=== PATIENT | female | born 1985 | race Caucasian/White ===

== ENCOUNTER 2020-08-21 08:27 | Outpatient (REF) | payer OTHER, SELFPAY ==
[2020-08-22 10:16] LABS: BV Int Neg Control Negative (Negative); BV Int Pos Control Positive (Positive)
[2020-08-22 20:51] LABS: C. trachomatis RNA TMA NOT DETECTED (NOT DETECTED); N. gonorrhoeae RNA TMA NOT DETECTED (NOT DETECTED)
== END 2020-08-21 08:28 | disposition home or self-care (01) ==
LOC: HO.LAB 08:27
PROVIDERS: Visit Provider Advanced Practice Midwife
DX: Z01.419 Encounter for gynecological examination (general) (routine) without abnormal findings (principal); Z12.4 Encounter for screening for malignant neoplasm of cervix; Z20.2 Contact with and (suspected) exposure to infections with a predominantly sexual mode of transmission
CPT/HCPCS: 36415; 87480; 87491; 87510; 87591; 87660

== ENCOUNTER 2021-08-27 08:14 | Outpatient (REF) | payer OTHER, SELFPAY ==
[2021-08-27 16:09] LABS: CT PCR NOT DETECTED (Not Detect.); NG PCR NOT DETECTED (Not Detect.)
[2021-08-28 11:03] LABS: BV Int Neg Control Negative (Negative); BV Int Pos Control Positive (Positive)
[2021-08-29 16:41] LABS: HPV mRNA E6/E7 rflx Not Detected (Not Detected)
== END 2021-08-27 08:15 | disposition home or self-care (01) ==
LOC: HO.LAB 08:14
PROVIDERS: Visit Provider Advanced Practice Midwife
DX: Z01.419 Encounter for gynecological examination (general) (routine) without abnormal findings (principal); Z11.51 Encounter for screening for human papillomavirus (HPV); Z20.2 Contact with and (suspected) exposure to infections with a predominantly sexual mode of transmission
CPT/HCPCS: 87480; 87491; 87510; 87591; 87624; 87660; 88142

== ENCOUNTER 2025-04-16 14:59 | Outpatient (AMB) | payer OTHER, SELFPAY ==
--- NOTE | 2025-04-16 15:08 | MHC.OFFVIS ---
Vital Signs 04/16/25 15:23 Height 5 ft 8 in Weight 315 lb BMI 47.9 BP 120/78 Intake Visit Reasons: INFORMATION ARCHITECT annual exam Staffing Operations Manager: Staffing Operations Manager Present (Denise) Accompanied by: Self / Same As Patient Allergies bee pollen (BEE STINGS) Allergy (Unknown, Verified 04/16/25 15:22) RASH codeine (CODEINE) Allergy (Unknown, Verified 04/16/25 15:22) HIVES latex (LATEX) Allergy (Unknown, Verified 04/16/25 15:22) RASH bee stings Allergy (Unknown, Uncoded 08/21/20 08:35) unknown latex Allergy (Unknown, Uncoded 08/21/20 08:35) hives, asthma SEASONAL ALLERGIES Allergy (Unknown, Uncoded 08/21/20 08:35) ITCHY EYES Medication List - Last Reconciled 04/16/25 by Ana Johnson CNM albuterol sulfate 90 mcg/actuation 2 puffs inhalation Q6H PRN budesonide-formoterol 160-4.5 mcg/actuation (Symbicort) 2 puffs inhalation BID montelukast (Singulair) 10 mg PO DAILY Is last menstrual period known: Yes Last menstrual period: 04/09/25 Post menopausal: No Patient : No HPI HPI INFORMATION ARCHITECT annual exam: Details: 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 Though this summer she had 2 months in the summer November and January where she had 2 periods in the month. Her periods when she gets them, are not long and very heavy. She had her tubes tied for control. 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 She struggles with her weight and it goes up and down she recently tried phentermine and used it for 4 months but did not do well with a because of anxiety side effects. She is waiting for GLP ones to be approved for her her primary care provider in [facility] is ordering it for her they are hoping for Zepbound. She recently had a whole lot of blood work done 2 months ago and says that all of her screens were negative for diabetes and liver issues and thyroid. She eats well and healthy and makes healthy choices and any time she loses weight it comes right back again. [facility] Medical History (Updated 04/16/25 @ 16:15 by Ana Johnson CNM) delivery delivered Asthma Surgical History (Updated 04/16/25 @ 15:21 by Denise Palencia MA) History of cholecystectomy History of tubal ligation Social History Alcohol intake: current Alcohol intake frequency: holidays/special occasions only Cigarettes Per Day: 3 Patient : No Gender identity: Female Female Reproductive History Menstrual Age of Menarche: 18 Duration of menses: 6-7 days Date of last menstrual period: 04/09/25 control method: permanent sterilization Total pregnancies: 4 Full term: 2 Date of last pap smear: 08/27/21 (negative pap smear, negative hpv ) Physical Exam Vital Signs: Last Vital Signs BP 120/78 04/16/25 15:23 BMI result Body Mass Index 47.9 Const General: healthy appearing, comfortable, no acute distress, well developed and alert Nutritional Appearance: average body habitus Orientation/consciousness: patient oriented x3 Limitations: no limitations HEENT Head: Yes normocephalic Neck Neck: Yes normal visual inspection Chest Chest palpation & inspection: normal inspection of the chest Breast/axilla inspection: normal inspection of the breasts and normal inspection of the axillae Breast/axilla palpation: normal palpation of the breasts and normal palpation of the axillae Resp Effort & Inspection: normal respiratory effort GI Inspection: Yes normal to inspection, No Abdominal wall edema and No distended Palpation (GI): Soft to palpation and nontender Other: Normal external exam vagina is pink and moist and clear with healthy scant mucus with tiny debris of previous menses which finished recently it started 7 days ago. Cervix difficult to visualize completely but pink and smooth on surface difficult to palpate uterus but nothing tender and she had good tone with Kegel no adnexal tenderness either. General: Yes bladder normal to palpation External Female Exam: normal external appearance and normal appearance of the urethra Speculum Exam - Vagina: normal appearance of the vagina, normal palpation and normal vaginal discharge Speculum Exam - Cervix: normal appearance of the cervix, normal palpation and nontender Bimanual exam- vagina & uterus: normal bimanual exam, normal palpation, uterine size normal, bladder normal to palpation, consistency normal, normal palpation, uterine mobility normal, uterine shape normal, No Cervical tenderness present, non-tender and no cervical motion tenderness Bimanual Exam- Adnexa, other: normal adnexae, no masses, normal and No adnexal tenderness Neuro General: patient oriented x3 Results Reviewed Results Reviewed: Name: Maryam Wheeler Age/Sex: 36/F Attending: Ana Johnson CNM : 1985 Submitted by: Ana Johnson CNM Copies to: MR #: [id number] Status: DEP REF Collected: 08/27/21 Location: .LAB Received: 08/28/21 Interpretation Satisfactory for evaluation. Negative for intraepithelial lesion or malignancy. HPV mRNA E6/E7: NOT DETECTED This assay detects E6/E7 viral messenger RNA (mRNA) from 14 high-risk HPV types (16, 18, 31, 33, 35, 39, 45, 51, 52, 56, 58, 59, 66, 68) HPV testing performed by [facility], [place], [place]. See reference laboratory pion of the EMR for entire report. Clinical Information LMP: 08/07/21 Previous PAP test: 2017, WNL Material Received ThinPrep Cervical Electronically Signed By: ALYSON Pruitt (ASCP) 09/18/21 8144 The Pap Test is a screening procedure with the inherent possibility of both false negative and false positive results. Results should be interpreted in the context of historic and current clinical findings. Reliability of the Pap Test is enhanced by performing the test on a regular repetitive basis. Patient: Maryam Wheeler Age/Sex: 36/F MR#: [id number] Page 1 of 1 Assessment & Plan Assessment & Plan (1) Well woman exam with routine gynecological exam: Code(s): Z01.419 - Encounter for gynecological examination (general) (routine) without abnormal findings Category: Medical (2) Cervical cancer screening: Comment: no abnormals, last pap 03/14/19= neg , neg HPV.,;plan was to do pap 2023, but pap was done 08/27/21= negative with negative HPV Code(s): Z12.4 - Encounter for screening for malignant neoplasm of cervix Category: Medical (3) Potential exposure to STD: Comment: Testing done with pelvic exam but she declines blood work today Code(s): Z20.2 - Contact with and (suspected) exposure to infections with a predominantly sexual mode of transmission Category: Medical (4) Obesity, morbid, BMI 40.0-49.9: Comment: Doing her best to try and eat healthy and make good choices and walks a lot in her job. Is awaiting insurance approval for GLP ones. Code(s): E66.01 - Morbid (severe) obesity due to excess calories Category: Medical Plan -----Discussed in this visit the following: healthy balanced diet, regular and consistent exercise, getting recommended health screens, doing the best she can for her particular health concerns, kegel exercises, pap smear screening and followup recommendations, mammography screening and SBE, normal changes in cycles in her life stage--- . I wished her luck with her efforts at weight loss and hope that she gets the GLP ones approved as she would definitely benefit from assistance as she is already trying to do all the right stuff and pay attention to it. Acknowledged that ones we are significantly overweight it is just much more difficult and are body has a different set point and there learning more and more about this. Discussed potential side effects and continue her excellent efforts. Discussed start of mammograms at age 42. About her periods I recommend continuing to keep track if she ever did start skipping menses especially up to 3 months discussed that we would want to work her up and make sure that there was no endometrial cancer by doing an endometrial biopsy but the solution for regulating menses might be a Mirena IU S which is frequently used in this particular age group to regulate / decrease menses. Is no indication of for this now but I just wanted to let her know for future reference. She declined blood work for STIs. .Her next Pap would be 2026 RTC 1 year. Coding Level of Care Code Est Pt Prev Care 18-39y(35069) Diagnoses Well woman exam with routine gynecological exam Z01.419 Cervical cancer screening Z12.4 Potential exposure to STD Z20.2 Obesity, morbid, BMI 40.0-49.9 E66.01
[2025-04-16 15:23] VITALS: BP 120/78; BMI 47.9
--- OUTSIDE RECORDS SUMMARY | 2025-04-16 18:24 | XMS_ITS | Clinical Summary ---
Author Organization [address] [facility] Address [address] [place] [address] Phone Care Team Providers Care Cigarette Tester Name Role Phone Josselin Aguilar MD Primary Care Prov ider Allergies Active Allergy Reactions Criticality Noted Date Comments Acetaminophen 11/27/2022 Codeine Hives 04/23/2017 Latex Rash 05/12/2017 Medications albuterol 2.5 mg /3 mL (0.083 %) nebulizer solution Inhale 3 mL (2.5 mg total) by mouth. 03/13/2024 Active montelukast (SINGULAIR) 10 mg tablet Take 1 tablet (10 mg total) by mouth at bedtime. 08/02/2023 Active naproxen (NAPROSYN) 500 mg tablet Take 1 tablet (500 mg total) by mouth. 01/14/2023 Active fluoride, sodium, (DentaGeL) 1.1 % gel USE DIRECTED BEFORE BEDTIME 10/25/2022 Active Ventolin HFA 90 mcg/actuation inhaler INHALE 2 PUFFS INTO THE LUNGS EVERY 4 HOURS NEEDED FOR COUGH OR WHEEZING FOR UP TO 30 DAYS. 18 each 2 06/06/2024 Active umeclidinium (Incruse Ellipta) 62.5 mcg/actuation inhalation Inhale 1 puff by mouth. Active Advair Diskus 500-50 mcg/dose diskus inhaler INHALE 1 PUFF INTO THE LUNGS EVERY 12 HOURS FOR 30 DAYS. 60 each 11 07/24/2024 Active tirzepatide, weight loss, (Zepbound) 2.5 mg/0.5 mL injectionIndica tions:Morbid obesity (CMS/HCC V24, CMS/HCC V28) Inject 0.5 mL (2.5 mg total) under the skin every 7 (seven) days. 2 mL 03/13/2025 Active tirzepatide, weight loss, (Zepbound) 5 mg/0.5 mL injectionIndica tions:Morbid obesity ([facility] V24, [facility] V28) Inject 0.5 mL (5 mg total) under the skin every 7 (seven) days. 2 mL 03/29/2025 Active Active Problems Problem Noted Date Diagnosed Date Moderate mixed hyperlipidemia not requiring stat in therapy 12/15/2024 Plantar fasciitis, bilateral 12/14/2024 Bilateral edema of lower extremity 11/18/2022 Snoring 05/23/2021 Overview (04/14/2024): 04/2021 Home Sleep Study did not reveal sleep apnea or nocturnal hypoxia. COVID-19 virus infection 09/14/2020 Moderate persistent asthma 03/21/2019 Depression 04/23/2017 Allergic rhinitis 03/25/2017 Asthma 03/25/2017 Migraine headache 09/09/2013 Encounters Date Type Department Care Team Description 03/13/2025 9:30 AM EDT Office Visit Adult Medicine - [address] [phone] Sylvain Kaba PA Class 3 severe obesity due to excess calories with body mass index (BMI) of 50.0 to 59.9 in adult, unspecified whether serious comorbidity present ([facility] V24, [facility] V28) (Primary Dx); Elevated BP without diagnosis of hypertension; Anxiety; History of tachycardia; Morbid obesity ([facility] V24, [facility] V28) 03/06/2025 8:15 AM EDT Office Visit Orthopedic Surgery - [place] [address] [place] [phone] Yogi Badillo, DPM Plantar fascial fibromatosis (Primary Dx); Tendinitis of right ankle; Arthritis of right ankle; Tendonitis, Achilles, right; Equinus contracture of ankle; Hallux rigidus of left foot; Hallux rigidus of right foot 03/04/2025 10:15 AM EDT Office Visit Walk-In Clinic - [address] [place] [address] Osmin Flores PA Congestion of nasal sinus (Primary Dx); Acute non-recurrent maxillary sinusitis from Last 3 Months Immunizations Immunization Administration Dates Next Due Influenza Quadravalent, MDCK , 0.5ml, preservative free (Flucelvax) 6mo and older 03/12/2023 Influenza Quadravalent, MDCK , 0.5ml, with preservative (Flucelvax) 6mo and older 04/03/2020,03/29/2019 Influenza Quadrivalent, 0.5m l, preservative free (Fluarix; FluLaval; Fluzone) ages 6mo and older (Afluria) 3yo and older 06/03/2017 Influenza trivalent, 0.5mL, preservative free (Fluarix; FluLaval; Fluzone) ages 6mo and older (Afluria) 3 years and older 04/26/2024 Influenza trivalent, MDCK, 0 .5mL, preservative free (Flucelvax) 6mo and older 03/14/2025 Influenza, live, intranasal, trivalent (FluMist) 2yo to less than 50yo 04/26/2024 Pneumococcal polysaccharide 23 valent (Pneumovax 23) 2yo and older 12/09/2017 Tdap Tetanus diptheria acell ular pertussis (Boostrix; Adacel) 7yo and older 09/30/2017 Surgical History Surgery Date Site/Laterality Comments CHOLECYSTECTOMY 2003 PROCEDURE: HISTORICAL CHOLECYSTECTOMY SECTION PROCEDURE: HISTORICAL ; COMMENT: 12/2012, 11/2017 TUBAL LIGATION 11/2017 PROCEDURE: HISTORICAL TUBAL LIGATION Medical History Medical History Date Comments Depression 04/23/2017 DX:Depression Morbid obesity with BMI of 4 0.0-44.9, adult ([facility] V24, CMS/HCC V28) 03/25/2017 DX:Morbid obesity wit h BMI of 40.0-44.9, adult ([facility]) Allergic rhinitis 03/25/2017 DX:Allergic rh initis Moderate persistent asthma 03/21/2019 DX:Mo derate persistent asthma Family History Medical History Relation Name Comments Diabetes Father Merrill aranda Hyperlipidemia Father Merrill aranda No Known Problems Maternal Grandfather Glaucoma Maternal Grandmother No Known Problems Mother Breast cancer Mother's side 1 Breast cancer Mother's side 2 No Known Problems Paternal Grandfather No Known Problems Paternal Grandmother Relation Name Status Comments Father Merrill aranda Alive Maternal Grandfather Alive Maternal Grandmother Alive Mother Alive Mother's side 1 Mother's side 2 Paternal Grandfather Alive Paternal Grandmother Social History Tobacco Use Types Packs/Day Years Used Date Smoking Tobacco: Former Cigarettes 1 7.8 S tarted: 2018 Smokeless Tobacco: Never Tobacco Cessation:Counseling Given: Not Answered Alcohol Use Standard Drinks/Week Comments Yes 1 (1 standard drink = 0.6 oz pur e alcohol) Housing Instability Answer Date Recorde d Are you worried that in the next 2 months you may not have stable housing? No 12/14/2024 Food Access & Nutrition Answer Date Rec orded Do you have access to a vari ety of food including fruits and vegetables? Yes 12/14/2024 Access to Healthcare Answer Date Record ed Within the last 3 months, ho w many times did you visit the emergency department for your medical care? 0 12/14/2024 Health Literacy Answer Date Recorded How often do you need to hav e someone help you when you read instructions, pamphlets, or other written material from your doctor or pharmacy? Never 12/14/2024 Caregiver: How often do you need to have someone help you when you read instructions, pamphlets, or other written material from your doctor or pharmacy? Not on file 12/14/2024 Financial Risk Answer Date Recorded How hard is it for you to pa y for the very basics like food, housing, medical care, and air conditioning / heating? Not very hard 12/14/2024 Transportation Answer Date Recorded Has the lack of transportati on kept you from meetings, work, or from getting things needed for daily living? No Has the lack of transportati on kept you from medical appointments or from getting medications? No 12/14/2024 Social Isolation Answer Date Recorded How often do you feel lonely or isolated from th ose around you? Never 12/14/2024 Food Risk Answer Date Recorded Within the past 12 months we worried whether our food would run out before we got money to buy more. Never true 12/14/2024 Within the past 12 months th e food we bought just didn't last and we didn't have money to get more. Never true 12/14/2024 Dependent Care Answer Date Recorded Do you need help finding or paying for care for your loved ones. For example, exceptional children teacher assistant or elderly care for an older adult? No 12/14/2024 Education Answer Date Recorded Do you think completing more education or training, like finishing a GED, going to college, or learning a trade, would be helpful for you? No 12/14/2024 Employment and Income Answer Date Recor ded During the last four weeks, have you been actively looking for work? No 12/14/2024 Living Situation Answer Date Recorded What is your living situation? Unrecognized valu e 12/14/2024 Comments No Sex and Gender Information Value Date Recorded Sex Assigned at Not on file Legal Sex Female 3:39 AM EST Gender Identity Not on file Sexual Orientation Not on file Occupation Industry Job Start Date Job End Date [employer] Not on file Not on file Not on santo e Obstetrics History Last Filed Vital Signs Vital Sign Reading Time Taken Comments Blood Pressure 154/86 03/13/2025 9:56 AM EDT Pulse 70 03/13/2025 9:27 AM EDT Temperature 36.3 C (97.3 F) 03/13/2025 9:27 AM EDT Respiratory Rate 16 01/03/2025 3:40 PM EDT Oxygen Saturation 98% 03/04/2025 10:16 AM EDT Inhaled Oxygen Concentration - - Weight 152 kg (335 lb) 03/13/2025 9:27 AM EDT Height 172.7 cm (5' 8 ) 03/13/2025 9:27 AM EDT Body Mass Index 50.94 03/13/2025 9:27 AM EDT Plan of Treatment Upcoming Encounters Date Type Department Care Team (Late st Contact Info) Description 04/19/2025 3:15 PM EDT Office Visit Orthopedic Surgery - [address] [place] [phone] Yogi Badillo DPM [address] [place] [phone] 06/12/2025 4:30 PM EST Office Visit Adult Medicine - [address] [phone] Sylvain Kaba PA [address] [place] [address] 07/06/2025 2:15 PM EST Office Visit Pulmonology - [place] [address] [facility] [address] [place] [phone] Huang Sebastian MD [address] [place] [phone] Health Maintenance Due Date Last Done Comments HPV Vaccines (1 - 3-dose SCDM series) 2014 Cervical Cancer Screening: Pap Smear 03/21/2022 03/21/2019, 03/21/2019 Social Influencers of Health Screening 12/14/2025 12/14/2024, 07/28/2023 DTaP,Tdap,and Td Vaccines (2 - Td or Tdap) 10/01/2027 09/30/2017 Cholesterol Screening (Lipid Panel) 12/15/2029 12/15/2024, 07/28/2023, 03/21/2019 RSV Immunization Adult Patients (1 - 1-dose 75+ series) 2062 Pneumococcal Vaccine: Pediatrics (0 to 5 Years) and At-Risk Patients (6 to 49 Years) Discontinued 12/09/2017 COVID-19 Vaccine Discontinued 12/20/2020, 11/29/2020 Depression Screening Completed 12/14/2024, 07/28/19 Hepatitis C Screening Completed 12/15/2024 Influenza Vaccine Completed 03/14/2025, , 04/26/2024, Additional history exists HIB Vaccines Aged Out No longer eligi ble based on patient's age to complete this topic HIV Screening Discontinued Hepatitis A Vaccines Aged Out No long er eligible based on patient's age to complete this topic Hepatitis B Vaccines Discontinued IPV Vaccines Aged Out No longer eligi ble based on patient's age to complete this topic MMR Vaccines Aged Out No longer eligi ble based on patient's age to complete this topic Meningococcal ACWY Vaccine Aged Out N o longer eligible based on patient's age to complete this topic Meningococcal B Vaccine Aged Out No l onger eligible based on patient's age to complete this topic RSV Immunization Patients Under 20 months Aged Out No longer eligible based on patient's age to complete this topic Varicella Vaccines Aged Out No longer eligible based on patient's age to complete this topic Procedures Procedure Name Priority Date/Time Associated Diagnosis Comments POC RAPID [id number], MOLECULAR Routine 03/04/2025 10:28 AM EDT Congestion of nasal sinus HEPATITIS C ANTIBODY Routine 12/15/2024 1:23 PM EDT Need for hepatitis C screening test LIPID PANEL WITH REFLEX TO DIRECT LDL Routine 12/15/2024 1:23 PM EDT Screening, lipid HM DEPRESSION SCREENING Routine 07/28/2023 HM PAP SMEAR Routine 03/21/2019 from Last 3 Months or Most Recently Relevant to Health Maintenance Results * Poc Rapid [id number], MOLECULAR (03/04/2025 10:28 AM EDT) Pathologist [facility] [place] COVID-19/SARS- COV-2 Rapid POC Negative Negative Swab Nasopharyngeal structure / Unknown 03/04/2025 10:28 AM EDT Osmin HANNAH POINT OF CARE TEST ENTER/EDIT OR DERABLES Final Result * Hepatitis C antibody (12/15/2024 1:23 PM EDT) Pathologist [facility] Hepatitis C Antibody Negative Negative LAB CHEMISTRY METHOD 12/15/2024 5:28 PM EDT [facility] Blood Venous blood specimen / Unknown Venipuncture / Unknown 12/15/2024 1:23 PM EDT 12/15/2024 1:23 PM EDT Sylvain HANNAH LAB BLOOD ORDERABLES Final Res ult [facility] [address] [place] [address], [place] [phone] * (ABNORMAL) Lipid panel with reflex to direct LDL (12/15/2024 1:23 PM EDT) Cholesterol 204(H) 0 - 200 mg/dL LAB CHEMISTRY METHOD 12/15/2024 4:05 PM EDT [facility] Triglycerides 197(H) 0 - 150 mg/dL LAB CHEMISTRY METHOD 12/15/2024 4:05 PM EDT [facility] HDL 65 >=40 mg/dL LAB CHEMISTRY METHOD 12/15/2024 4:05 PM EDT [facility] LDL Calculated 100 0 - 100 mg/dL LAB CHEMISTRY METHOD 12/15/2024 4:05 PM EDT [facility] VLDL Cholesterol Wander 39.4 mg/dL LAB CHEMISTRY METHOD 12/15/2024 4:05 PM EDT [facility] Non HDL Chol. (LDL+VLDL) 139 <145 mg/dL LAB CHEMISTRY METHOD 12/15/2024 4:05 PM EDT [facility] Chol/HDL Ratio 3.1 0.0 - 4.4 LAB CHEMISTRY METHOD 12/15/2024 4:05 PM EDT [facility] Blood Venous blood specimen / Unknown Venipuncture / Unknown 12/15/2024 1:23 PM EDT 12/15/2024 1:23 PM EDT Sylvain HANNAH LAB BLOOD ORDERABLES Final Res ult [facility] [address] [place] [address], * Depression Screening (07/28/2023) Depression Screening abstracted Historical Provider HEALTH MAINTENANCE Final Result * Pap Smear (03/21/2019) Pap smear no interpretation , abstracted Historical Provider HEALTH MAINTENANCE Final Result from Last 3 Months or Most Recently Relevant to Health Maintenance Additional Health Concerns Infection Onset Date Last Indicated Coronavirus 07/21/2024 07/21/2024 Insurance [facility] [employer] Care Teams Cigarette Tester Relationship Specialty Start Date End Date Josselin Aguilar MD [address] [place] [phone] PCP - General Internal Medicine 01/29/21
--- OUTSIDE RECORDS SUMMARY | 2025-04-16 18:24 | XMS_ITS ---
Author Name [facility] Organization Unknown Care Team Organization Name Specialty Phone Email Start Date End Da te [facility] MARLEN RAMSEY Primary Care 12/24/2022 02/07/2024 [facility] DORA VELÁZQUEZ Primary Care 09/22/2022 02/07/20 [facility] Miya Sanders Primary Care 04/28/2022 02/07/20 24
== END 2025-04-18 14:51 | disposition home or self-care (01) ==
LOC: HO.HWS 15:00
PROVIDERS: Visit Provider Advanced Practice Midwife
DX: Z01.419 Encounter for gynecological examination (general) (routine) without abnormal findings (principal); Z20.2 Contact with and (suspected) exposure to infections with a predominantly sexual mode of transmission; E66.01 Morbid (severe) obesity due to excess calories; Z68.42 Body mass index [BMI] 45.0-49.9, adult
CPT/HCPCS: 99395; 99459

== ENCOUNTER 2025-04-16 14:59 | Outpatient (REF) | payer OTHER, SELFPAY ==
--- OUTSIDE RECORDS SUMMARY | 2025-04-16 19:08 | XMS_ITS | Encounter Summary ---
Author Organization [facility] Address [address] [place] [address] Care Team Providers Care Purchaser Automotive Parts Name Role Phone Ileana Barraza MD Unavailable Unava ilable Edison Aguilar MD Primary Care Provider +1 [phone] Encounter Details Date Type Department Care Team Description 01/15/2022 Telephone Pulmonology - [place] 175 [facility] [address] [place] [address] Huang Sebastian MD [address] [place] [phone] Social History Tobacco Use Types Packs/Day Years Used Date Smoking Tobacco: Former Cigarettes 1 11 Smokeless Tobacco: Never Alcohol Use Standard Drinks/Week Comments Yes 0 (1 standard drink = 0.6 oz pur e alcohol) social, once monthly Sex Assigned at Date Recorded Female 11/30/2022 9:26 PM E DT COVID-19 Exposure Response Date Recorded In the last 10 days, have yo u been in contact with someone who was confirmed or suspected to have Coronavirus/COVID-19? No / Unsure 01/06/2022 3:33 PM EDT documented as of this encounter Plan of Treatment Not on file documented as of this encounter Visit Diagnoses Not on filedocumented in this encounter Care Teams Purchaser Automotive Parts Relationship Specialty Start Date End Date Edison Aguilar MD [address] [place] [address] PCP - General Internal Medicine 01/29/21 Ileana Barraza MD Internal Medicine 05/12/17 documented as of this encounter
--- OUTSIDE RECORDS SUMMARY | 2025-04-16 19:08 | XMS_ITS | Encounter Summary ---
Author Organization [facility] Address [address] [place] [address] Care Team Providers Care Citrus Fruit Colorer Name Role Phone Ileana Barraza MD Unavailable Unava ilable Edison Aguilar MD Primary Care Provider +1 -[phone] Encounter Details Date Type Department Care Team Description 12/04/2021 SCAN [facility] Medical [facility] [address] [phone] Yogi Badillo DPM [address] [address] Social History Tobacco Use Types Packs/Day Years [...] suspected to have Coronavirus/COVID-19? No / Unsure 12/02/2021 3:20 PM EDT documented as of this encounter Plan of Treatment Not on file documented as of this encounter Visit Diagnoses Not on filedocumented in this encounter Care Teams Citrus Fruit Colorer Relationship Specialty Start Date End Date Edison Aguilar MD [address] [place] [address] PCP - General Internal Medicine 01/29/21 Ileana Barraza MD Internal Medicine 05/12/17 documented as of this encounter
--- OUTSIDE RECORDS SUMMARY | 2025-04-16 19:08 | XMS_ITS | Encounter Summary ---
Author Organization [facility] Address [address] [place] [address] Care Team Providers Care Obedience Trainer Name Role Phone Ileana Barraza MD Unavailable Unava ilable Edison Aguilar MD Primary Care Provider [phone] [phone] Encounter Details Date Type Department Care Team Description 01/28/2022 SCAN [facility] Medical [facility] [address] [phone] Yogi Badillo DPM [address] [address] Social History Tobacco Use Types Packs/Day Years Used Date Smoking Tobacco: Former Cigarettes 1 11 Smokeless Tobacco: Never Alcohol Use Standard Drinks/Week Comments Yes 4 (1 standard drink = 0.6 oz pur e alcohol) Sex Assigned at Date Recorded Female 11/30/2022 9:26 PM E DT COVID-19 Exposure Response Date Recorded In the last 10 days, have yo u been in contact with someone who was confirmed or suspected to have Coronavirus/COVID-19? No / Unsure 01/26/2022 3:13 PM EDT documented as of this encounter Plan of Treatment Not on file documented as of this encounter Visit Diagnoses Not on filedocumented in this encounter Care Teams Obedience Trainer Relationship Specialty Start Date End Date Edison Aguilar MD [address] [place] [address] PCP - General Internal Medicine 01/29/21 Ileana Barraza MD Internal Medicine 05/12/17 documented as of this encounter
--- OUTSIDE RECORDS SUMMARY | 2025-04-16 19:08 | XMS_ITS | Encounter Summary ---
Author Organization [facility] Address [address] [place] [address] Care Team Providers Care Elevator Repair Mechanic Name Role Phone Ileana Barraza MD Unavailable Unava ilable Ileana Barraza MD Primary Care Provider Unavailable Edison Aguilar MD Primary Care Provider [phone] [phone] Encounter Details Date Type Department Care Team Description 06/18/2019 Refill Pulmonology [facility] 175 [facility] [address] [place] [address] Dafne Nation NP Social History Tobacco Use Types Packs/Day Years Used Date Smoking Tobacco: Former Cigarettes 1 11 Smokeless Tobacco: Never Alcohol Use Standard Drinks/Week Comments Yes 0 (1 standard drink = 0.6 oz pur e alcohol) social, once monthly Sex Assigned at Date Recorded Female 11/30/2022 9:26 PM E DT documented as of this encounter Plan of Treatment Not on file documented as of this encounter Visit Diagnoses Diagnosis Asthma, unspecified asthma severity, unspecified whether complicated, unspecified whether persistent documented in this encounter Care Teams Elevator Repair Mechanic Relationship Specialty Start Date End Date Ileana Barraza MD PCP - General Internal Medicine 08/10/1704/10 Edison Aguilar MD [address] [place] [address] PCP - General Internal Medicine 01/29/21 Ileana Barraza MD Internal Medicine 05/12/17 documented as of this encounter
--- OUTSIDE RECORDS SUMMARY | 2025-04-16 19:08 | XMS_ITS | Encounter Summary ---
Author Organization [facility] Address [address] [place] [address] Care Team Providers Care Finishing Manager Name Role Phone Ileana Barraza MD Unavailable Unava ilable Edison Aguilar MD Primary Care Provider [phone] [phone] Encounter Details Date Type Department Care Team Description 02/10/2022 SCAN [facility] Medical [facility] [address] [phone] Yogi Badillo DPM [address] [address] Social History Tobacco Use Types Packs/Day Years [...] suspected to have Coronavirus/COVID-19? No / Unsure 02/05/2022 3:22 PM EDT documented as of this encounter Plan of Treatment Not on file documented as of this encounter Visit Diagnoses Not on filedocumented in this encounter Care Teams Finishing Manager Relationship Specialty Start Date End Date Edison Aguilar MD [address] [place] [address] PCP - General Internal Medicine 01/29/21 Ileana Barraza MD Internal Medicine 05/12/17 documented as of this encounter
--- OUTSIDE RECORDS SUMMARY | 2025-04-16 19:08 | XMS_ITS | Encounter Summary ---
Author Organization [facility] Address [address] [place] [address] Care Team Providers Care Ductfixing Plumber Name Role Phone Ileana Barraza MD Unavailable Unava ilable Ileana Barraza MD Primary Care Provider Unavailable Edison Aguilar MD Primary Care Provider [phone] [phone] Encounter Details Date Type Department Care Team Description 12/27/2020 Refill Internal Medicine - [place] [address] [facility], [address] [place] [address] Huang Sebastian MD [address] [place] [address] Social History Tobacco Use Types Packs/Day Years [...] as of this encounter Visit Diagnoses Diagnosis Moderate persistent asthma, unspecified whether complicated documented in this encounter Care Teams Ductfixing Plumber Relationship Specialty Start Date End Date Ileana Barraza MD PCP - General Internal Medicine 08/10/1704/10 Edison Aguilar MD [address] [place] [address] PCP - General Internal Medicine 01/29/21 Ileana Barraza MD Internal Medicine 05/12/17 documented as of this encounter
--- OUTSIDE RECORDS SUMMARY | 2025-04-16 19:08 | XMS_ITS | Encounter Summary ---
Author Organization [facility] Address [address] [place] [address] Care Team Providers Care Production Engineer Name Role Phone Ileaan Barraza MD Unavailable Unava ilable Edison Aguilar MD Primary Care Provider [phone] [phone] Encounter Details Date Type Department Care Team Description 12/25/2021 SCAN [facility] Medical [facility] 175 [facility] [address] [place] [phone] Nathan Wilkerson PA-C Social History Tobacco Use Types Packs/Day Years [...] on filedocumented in this encounter Care Teams Production Engineer Relationship Specialty Start Date End Date Edison Aguilar MD [address] [place] [address] PCP - General Internal Medicine 01/29/21 Ileana Barraza MD Internal Medicine 05/12/17 documented as of this encounter
--- OUTSIDE RECORDS SUMMARY | 2025-04-16 19:08 | XMS_ITS | Encounter Summary ---
Author Organization [facility] Address [address] [place] [address] Care Team Providers Care Machine Ceramic Coater Name Role Phone [place]-Ileana Durbin MD Unavailable Unava ilable Edison Aguilar MD Primary Care Provider [phone] [phone] Encounter Details Date Type Department Care Team Description 05/13/2021 Telephone Pulmonology - [place] 175 [facility] [address] [place] [address] Huang Sebastian MD [address] [place] [phone] Social History Tobacco Use Types Packs/Day Years Used Date Smoking Tobacco: Former Cigarettes 1 11 Smokeless Tobacco: Never Alcohol Use Standard Drinks/Week Comments Yes 0 (1 standard drink = 0.6 oz pur e alcohol) social, once monthly Sex Assigned at Date Recorded Female 11/30/2022 9:26 PM E DT documented as of this encounter Miscellaneous Notes * Telephone Encounter - Rush Ramirez - 05/13/2021 12:57 PM EST Geni 01/29/21 Nov 08/15/21 documented in this encounter Plan of Treatment Not on file documented as of this encounter Visit Diagnoses Diagnosis Asthma, unspecified asthma severity, unspecified whether complicated, unspecified whether persistent documented in this encounter Care Teams Machine Ceramic Coater Relationship Specialty Start Date End Date Edison Aguilar MD [address] [place] [address] PCP - General Internal Medicine 01/29/21 [place]-Ileana Durbin MD Internal Medicine 05/12/17 documented as of this encounter
--- OUTSIDE RECORDS SUMMARY | 2025-04-16 19:08 | XMS_ITS | Encounter Summary ---
Author Organization [facility] Address [address] [place] [address] Care Team Providers Care Product Manager E Commerce Name Role Phone Ileana Barraza MD Unavailable Unava ilable Edison Aguilar MD Primary Care Provider [phone] [phone] Encounter Details Date Type Department Care Team Description 01/30/2022 SCAN [facility] Medical [facility] [address] [phone] Yogi Badillo DPM [address] [address] Social History Tobacco Use Types Packs/Day Years [...] on filedocumented in this encounter Care Teams Product Manager E Commerce Relationship Specialty Start Date End Date Edison Aguilar MD [address] [place] [address] PCP - General Internal Medicine 01/29/21 Ileana Barraza MD Internal Medicine 05/12/17 documented as of this encounter
--- OUTSIDE RECORDS SUMMARY | 2025-04-16 19:08 | XMS_ITS | Encounter Summary ---
Author Organization [facility] Address [address] [place] [address] Care Team Providers Care Mechanical Systems Design Engineer Name Role Phone Canelo Durbin MD Primary Care Provider Unav ailIleana Loaiza MD Unavailable Unava ilIleana Loaiza MD Primary Care Provider Unavailable Edison Aguilar MD Primary Care Provider [phone] [phone] Encounter Details Date Type Department Care Team Description 05/19/2017 Transfer Records Medical Records [address] [place] [id number] Abstract, Provider Social History Tobacco Use Types Packs/Day Years Used Date Smoking Tobacco: Former Cigarettes 1 11 Smokeless Tobacco: Never Alcohol Use Standard Drinks/Week Comments No 0 (1 standard drink = 0.6 oz pur e alcohol) Sex Assigned at Date Recorded Female 11/30/2022 9:26 PM E DT documented as of this encounter Plan of Treatment Not on file documented as of this encounter Visit Diagnoses Not on filedocumented in this encounter Care Teams Mechanical Systems Design Engineer Relationship Specialty Start Date End Date Canelo Durbin MD PCP - General Gastroenterology 05/12/17 08/09/17 Ileana Barraza MD PCP - General Internal Medicine 08/10/1704/10 Edison Aguilar MD [address] [place] [address] PCP - General Internal Medicine 01/29/21 Ileana Barraza MD Internal Medicine 05/12/17 documented as of this encounter
--- OUTSIDE RECORDS SUMMARY | 2025-04-16 19:08 | XMS_ITS | Encounter Summary ---
Author Organization [facility] Address [address] [place] [address] Care Team Providers Care General Practice Name Role Phone Ileana Barraza MD Unavailable Unava ilable Ileana Barraza MD Primary Care Provider Unavailable Edison Aguilar MD Primary Care Provider [phone] [phone] Encounter Details Date Type Department Care Team Description 03/02/2018 Orders Only Pulmonology - [place] [address] [facility] [address] [place] [phone] Huang Sebastian MD 175 [place] [phone] Moderate persistent asthma, unspecified whether complicated (Primary Dx) Social History Tobacco Use Types Packs/Day Years [...] Diagnoses Diagnosis Moderate persistent asthma, unspecified whether complicated- Primary documented in this encounter Care Teams General Practice Relationship Specialty Start Date End Date Ileana Barraza MD PCP - General Internal Medicine 08/10/1704/10 Edison Aguilar MD [address] [place] [address] PCP - General Internal Medicine 01/29/21 Ileana Barraza MD Internal Medicine 05/12/17 documented as of this encounter
--- OUTSIDE RECORDS SUMMARY | 2025-04-16 19:08 | XMS_ITS | Encounter Summary ---
Author Organization [facility] Address [address] [place] [address] Care Team Providers Care Urban Designer Name Role Phone Ileana Barraza MD Unavailable Unava ilable Edison Aguilar MD Primary Care Provider [phone] [phone] Encounter Details Date Type Department Care Team Description 04/21/2023 Pt. Non Urgent Medical Question Pulmonology - [place] 175 [facility] [address] [place] [phone] Huang Sebastian MD 175 [place] [phone] Social History Tobacco Use Types Packs/Day Years [...] suspected to have Coronavirus/COVID-19? No / Unsure 04/22/2023 3:10 PM EDT documented as of this encounter Plan of Treatment Not on file documented as of this encounter Visit Diagnoses Not on filedocumented in this encounter Care Teams Urban Designer Relationship Specialty Start Date End Date Edison Aguilar MD [address] [place] [address] PCP - General Internal Medicine 01/29/21 Ileana Barraza MD Internal Medicine 05/12/17 documented as of this encounter
--- OUTSIDE RECORDS SUMMARY | 2025-04-16 19:08 | XMS_ITS | Encounter Summary ---
Author Organization [facility] Address [address] [place] [address] Care Team Providers Care Toll Lineman Name Role Phone Ileana Barraza MD Unavailable Unava ilable Edison Aguilar MD Primary Care Provider [phone] [phone] Encounter Details Date Type Department Care Team Description 03/12/2022 SCAN [facility] [address] [place] [address] [place] [phone] Nathan Wilkerson PA-C Social History Tobacco [...] on filedocumented in this encounter Care Teams Toll Lineman Relationship Specialty Start Date End Date Edison Aguilar MD [address] [place] [address] PCP - General Internal Medicine 01/29/21 Ileana Barraza MD Internal Medicine 05/12/17 documented as of this encounter
--- OUTSIDE RECORDS SUMMARY | 2025-04-16 19:08 | XMS_ITS | Encounter Summary ---
Author Organization [facility] Address [address] [place] [address] Care Team Providers Care Machine Operator Farmworker Name Role Phone [place]-Ileana Durbin MD Unavailable Unava ilable Edison Aguilar MD Primary Care Provider [phone] [phone] Encounter Details Date Type Department Care Team Description 05/23/2021 Orders Only Pulmonology - [place] 175 [facility] [address] [place] [address] Huang Sebastian MD [address] [place] [address] Morbid obesity (HCC); FARHANA (obstructive sleep apnea) Social History Tobacco Use Types Packs/Day Years [...] on file documented as of this encounter Procedures Procedure Name Priority Date/Time Associated Diagnosis Comments SLEEP STUDY-FULL NEURO 16 CHANNEL Routine 05/07/2021 Morbid obesity (HCC) FARHANA (obstructive sleep apnea) documented in this encounter Results * SLEEP STUDY-FULL NEURO 16 CHANNEL (05/07/2021) Huang Sebastian MD PULMONOLOGY documented in this encounter Visit Diagnoses Diagnosis Morbid obesity (HCC) Morbid obesity FARHANA (obstructive sleep apnea) Obstructive sleep apnea (adult) (pediatric) documented in this encounter Care Teams Machine Operator Farmworker Relationship Specialty Start Date End Date Edison Aguilar MD [address] [place] [address] PCP - General Internal Medicine 01/29/21 [place]-Ileana Durbin MD Internal Medicine 05/12/17 documented as of this encounter
--- OUTSIDE RECORDS SUMMARY | 2025-04-16 19:08 | XMS_ITS | Encounter Summary ---
Author Organization [facility] Address [address] [place] [address] Care Team Providers Care Wind Technician Name Role Phone Ileana Barraza MD Unavailable Unava ilable Ileana Barraza MD Primary Care Provider Unavailable Edison Aguilar MD Primary Care Provider [phone] [phone] Encounter Details Date Type Department Care Team Description 06/18/2019 Refill Pulmonology - [place] 175 [facility] [address] [place] [phone] Huang Sebastian MD 175 [place] [phone] Social History Tobacco Use Types Packs/Day Years [...] severity, unspecified whether complicated, unspecified whether persistent Moderate persistent asthma, unspecified whether complicated documented in this encounter Care Teams Wind Technician Relationship Specialty Start Date End Date Ileana Barraza MD PCP - General Internal Medicine 08/10/1704/10 Edison Aguilar MD [address] [place] [address] PCP - General Internal Medicine 01/29/21 Ileana Barraza MD Internal Medicine 05/12/17 documented as of this encounter
--- OUTSIDE RECORDS SUMMARY | 2025-04-16 19:08 | XMS_ITS | Encounter Summary ---
Author Organization [facility] Address [address] [place] [address] Care Team Providers Care Registration Representative Name Role Phone [place]-Ileana Durbin MD Unavailable Unava ilable Edison Aguilar MD Primary Care Provider [phone] [phone] Encounter Details Date Type Department Care Team Description 03/11/2024 Pt. Non Urgent Medical Question Pulmonology - [place] 175 [facility] [address] [place] [address] Huang Sebastian MD 175 [place] [phone] Moderate persistent asthma with exacerbation (Primary Dx); Asthma, unspecified asthma severity, unspecified whether complicated, unspecified whether persistent Social History Tobacco Use Types Packs/Day Years Used Date Smoking Tobacco: Former Cigarettes 1 11 Smokeless Tobacco: Never Alcohol Use Standard Drinks/Week Comments Yes 4 (1 standard drink = 0.6 oz pur e alcohol) Sex Assigned at Date Recorded Female 11/30/2022 9:26 PM E DT documented as of this encounter Miscellaneous Notes * Telephone Encounter - Aman Yuan CMA - 03/13/2024 9:34 AM EDTFrom: Maryam Wheeler To: Madhavi Sebastian Sent: 03/11/2024 7:58 AM EDT Subject: Prescriptions At my appointment I asked if I could possibly get a prescription or help getting a nebulizer as mine is a few years old and it???s starting to get loud. Also, please, I need refills for the nebulizer. Any questions or concerns I can be reached at [phone] thank you! documented in this encounter Plan of Treatment Not on file documented as of this encounter Procedures Procedure Name Priority Date/Time Associated Diagnosis Comments NEBULIZER Routine 03/13/2024 6:43 PM EDT Moderate persistent asthma with exacerbation documented in this encounter Visit Diagnoses Diagnosis Moderate persistent asthma with exacerbation- Primary Unspecified asthma, with exacerbation Asthma, unspecified asthma severity, unspecified whether complicated, unspecified whether persistent documented in this encounter Care Teams Registration Representative Relationship Specialty Start Date End Date Edison Aguilar MD [address] [place] [address] PCP - General Internal Medicine 01/29/21 [place]-Ileana Durbin MD Internal Medicine 05/12/17 documented as of this encounter
--- OUTSIDE RECORDS SUMMARY | 2025-04-16 19:08 | XMS_ITS | Encounter Summary ---
Author Organization [facility] Address [address] [place] [address] Care Team Providers Care Facilities Operator Name Role Phone Ileana Barraza MD Unavailable Unava ilable Edison Aguilra MD Primary Care Provider [phone] [phone] Encounter Details Date Type Department Care Team Description 02/13/2022 SCAN [facility] Medical [facility] [address] [phone] Yogi Badillo DPM [address] [address] Social History Tobacco Use Types Packs/Day Years [...] on filedocumented in this encounter Care Teams Facilities Operator Relationship Specialty Start Date End Date Edison Aguilar MD [address] [place] [address] PCP - General Internal Medicine 01/29/21 Ileana Barraza MD Internal Medicine 05/12/17 documented as of this encounter
--- OUTSIDE RECORDS SUMMARY | 2025-04-16 19:08 | XMS_ITS | Encounter Summary ---
Author Organization [facility] Address [address] [place] [address] Care Team Providers Care Tube Roller Name Role Phone Ileana Barraza MD Unavailable Unava ilable Ileana Barraza MD Primary Care Provider Unavailable Edison Aguilar MD Primary Care Provider [phone] [phone] Reason for Visit * Reason Onset Date Comments medication problems 01/23/2019 Encounter Details Date Type Department Care Team Description 01/23/2019 Refill Pulmonology - [place] 175 [facility] [address] [place] [address] Huang Sebastian MD [address] [place] [address] medication problems Social History Tobacco Use Types Packs/Day Years Used Date Smoking Tobacco: Former Cigarettes 1 11 Smokeless Tobacco: Never Alcohol Use Standard Drinks/Week Comments No 0 (1 standard drink = 0.6 oz pur e alcohol) Sex Assigned at Date Recorded Female 11/30/2022 9:26 PM E DT documented as of this encounter Miscellaneous Notes * Telephone Encounter - Susanne Culver - 01/23/2019 12:26 PM EDT Unavailable dosing at [facility]-only 5 mg will need verbal ok to administer to pt. [facility] pharmacy did call on Wednesday re: Prednisone issue of no 10 - 20 mg. Sorry this is a duplicate of order-please disregard . documented in this encounter Plan of Treatment Not on file documented as of this encounter Visit Diagnoses Not on filedocumented in this encounter Care Teams Tube Roller Relationship Specialty Start Date End Date Ileana Barraza MD PCP - General Internal Medicine 08/10/1704/10 Edison Aguilar MD [address] [place] [address] PCP - General Internal Medicine 01/29/21 Ileana Barraza MD Internal Medicine 05/12/17 documented as of this encounter
--- OUTSIDE RECORDS SUMMARY | 2025-04-16 19:08 | XMS_ITS | Encounter Summary ---
Author Organization [facility] Address [address] [place] [address] Care Team Providers Care Professor Of Biostatistics Name Role Phone [place]-Ileana Durbin MD Unavailable Unava ilable Edison Aguilar MD Primary Care Provider [phone] Reason for Referral * Non MAYELA (Routine) - Closed Specialty Diagnoses / Procedures Referred By Contac t Referred To Contact Podiatry / Orthopedic Diagnoses Acute bilateral ankle pain Procedures REFERRAL TO PODIATRY (IN NETWORK) Sylvain Kaba PA-C [address] [place], [place] Yogi Badillo DPM [address] [place] [id number] Referral ID Status Reason Start Date Expiration Date Visits Re quested Visits Authorized [id number] Closed 07/25/2021 07/25/2022 1 1 Reason for Visit * Reason Onset Date Comments Hvac Engineering Technician Feedback 07/24/2021 Podiatry Encounter Details Date Type Department Care Team Description 07/24/2021 Telephone Adult Medicine - [place] [address] [place], [place] [phone] Edison Aguilar MD [address] [place], [place] Hvac Engineering Technician Feedback (Podiatry) Social History Tobacco Use Types Packs/Day Years Used Date Smoking Tobacco: Former Cigarettes 1 11 Smokeless Tobacco: Never Alcohol Use Standard Drinks/Week Comments Yes 0 (1 standard drink = 0.6 oz pur e alcohol) social, once monthly Sex Assigned at Date Recorded Female 11/30/2022 9:26 PM E DT documented as of this encounter Miscellaneous Notes * Telephone Encounter - Annette Willis - 07/25/2021 10:49 AM EST Good morning, You referred patient to [facility] unfortunately,this office does not accept patient insurance. Thank You! Please review this patients new referral request. The referral has been pended. Please complete thefollowing: If approved> sign order If denied>please give instructions and route to your practice nursing pool. Practice nurse should inform referrals and the patient if denied. documented in this encounter Plan of Treatment Not on file documented as of this encounter Visit Diagnoses Diagnosis Acute bilateral ankle pain- Primary documented in this encounter Care Teams Professor Of Biostatistics Relationship Specialty Start Date End Date Edison Aguilar MD [address] [place] [id number] PCP - General Internal Medicine 01/29/21 [place]-Ileana Durbin MD Internal Medicine 05/12/17 documented as of this encounter
--- OUTSIDE RECORDS SUMMARY | 2025-04-16 19:08 | XMS_ITS | Encounter Summary ---
Author Organization [facility] Address [address] [place] [address] Care Team Providers Care Southeast Regional Sales Manager Name Role Phone Ileana Barraza MD Unavailable Unava ilable Edison Aguilar MD Primary Care Provider [phone] Encounter Details Date Type Department Care Team Description 01/15/2022 Refill Pulmonology - [place] [address] [facility] [address] [place] [phone] Huang Sebastian MD [address] [place] [phone] Social History Tobacco Use Types Packs/Day Years [...] on filedocumented in this encounter Care Teams [facility] Regional Sales Manager Relationship Specialty Start Date End Date Edison Aguilar MD [address] [place] [address] PCP - General Internal Medicine 01/29/21 Ileana Barraza MD Internal Medicine 05/12/17 documented as of this encounter
--- OUTSIDE RECORDS SUMMARY | 2025-04-16 19:08 | XMS_ITS | Encounter Summary ---
Author Organization [facility] Address [address] [place] [address] Care Team Providers Care Filer Repairer Name Role Phone [place]-Ileana Durbin MD Unavailable Unava ilable Edison Aguilar MD Primary Care Provider [phone] Encounter Details Date Type Department Care Team Description 09/14/2022 Orders Only Vascular Surgery - [place] [address] [facility] [address] [place] [address] Anaya Dudley MD [address] [facility] [address] [place] [address] Venous insufficiency of both lower extremities; Leg pain, bilateral Social History Tobacco Use Types Packs/Day Years [...] suspected to have Coronavirus/COVID-19? No / Unsure 09/02/2022 8:51 AM EDT documented as of this encounter Plan of Treatment Not on file documented as of this encounter Procedures Procedure Name Priority Date/Time Associated Diagnosis Comments MT DUP-SCAN XTR VEINS COMPLETE BILATERAL STUDY Routine 09/11/2022 Venous insufficiency of both lower extremities Leg pain, bilateral documented in this encounter Results * MT DUP-SCAN XTR VEINS COMPLETE BILATERAL STUDY (09/11/2022) Anaya Dudley MD ULTRASOUND documented in this encounter Visit Diagnoses Diagnosis Venous insufficiency of both lower extremities Leg pain, bilateral Pain in limb documented in this encounter Care Teams Filer Repairer Relationship Specialty Start Date End Date Edison Aguilar MD [address] [place] [address] PCP - General Internal Medicine 01/29/21 [place]-Ileana Durbin MD Internal Medicine 05/12/17 documented as of this encounter
--- OUTSIDE RECORDS SUMMARY | 2025-04-16 19:08 | XMS_ITS | Encounter Summary ---
Author Organization [facility] Address [address] [place] [address] Care Team Providers Care Tech Brazer Tester Name Role Phone Canelo Durbin MD Primary Care Provider Unav ailIleana Loaiza MD Unavailable Unava ilIleana Loaiza MD Primary Care Provider Unavailable Edison Aguilar MD Primary Care Provider [phone] Encounter Details Date Type Department Care Team Description 05/18/2017 Release of Information Medical Records [address] [place] [id number] Abstract, Provider Social History Tobacco Use Types [...] on filedocumented in this encounter Care Teams Tech Brazer Tester Relationship Specialty Start Date End Date Canelo Durbin MD PCP - General Gastroenterology 05/12/17 08/09/17 Ileana Barrzaa MD PCP - General Internal Medicine 08/10/1704/10 Edison Aguilar MD [address] [place] [address] PCP - General Internal Medicine 01/29/21 Ileana Barraza MD Internal Medicine 05/12/17 documented as of this encounter
[2025-04-17 04:58] LABS: Bacterial Vaginosis PCR NEGATIVE (Negative); Candida Group PCR NOT DETECTED (Not Detect); Candida glab krusei PCR NOT DETECTED (Not Detect); Trichomonas vaginalis PCR NOT DETECTED (Not Detect)
[2025-04-17 05:29] LABS: CT PCR NOT DETECTED (Not Detect.); NG PCR NOT DETECTED (Not Detect.)
== END 2025-04-16 15:00 | disposition home or self-care (01) ==
LOC: HO.LNP 14:59
PROVIDERS: Visit Provider Advanced Practice Midwife
DX: Z01.419 Encounter for gynecological examination (general) (routine) without abnormal findings (principal); E66.01 Morbid (severe) obesity due to excess calories; Z68.42 Body mass index [BMI] 45.0-49.9, adult; Z20.2 Contact with and (suspected) exposure to infections with a predominantly sexual mode of transmission
CPT/HCPCS: 81515; 87491; 87591; 99395